=== PATIENT | male | born 1965 | race Caucasian/White ===

== ENCOUNTER 2016-07-26 00:57 | Emergency (ER) | payer OTHER ==
[~2016-07-26] VITALS: Ht 165.1 cm; Wt 81.6 kg
[2016-07-26 00:57] VITALS: BP_SYST 130
[2016-07-26] MEDS ORDERED: IBUPROFEN 800 MG TABLET PO ONE (01:30)
[2016-07-26 03:17] VITALS: BP_SYST 122
== END 2016-07-26 03:17 | disposition home or self-care (01) ==
LOC: SED 00:57
DX: S43.401A Unspecified sprain of right shoulder joint, initial encounter (principal); W11.XXXA Fall on and from ladder, initial encounter; Y93.89 Activity, other specified; Y92.89 Other specified places as the place of occurrence of the external cause; Y99.8 Other external cause status
CPT/HCPCS: 73030; 99284

== ENCOUNTER 2017-02-12 12:09 | Emergency (ER) | payer OTHER ==
[~2017-02-12] VITALS: Ht 165.1 cm; Wt 83.0 kg
[2017-02-12 12:40] VITALS: BP_SYST 120
[2017-02-12] MEDS ORDERED: KETOROLAC TROMETHAMINE 60 MG/2 ML VIAL IM ONE (13:30)
[2017-02-12 13:50] VITALS: BP_SYST 122
== END 2017-02-12 13:50 | disposition home or self-care (01) ==
LOC: SED 12:09
DX: S46.911A Strain of unspecified muscle, fascia and tendon at shoulder and upper arm level, right arm, initial encounter (principal); R03.0 Elevated blood-pressure reading, without diagnosis of hypertension; X58.XXXA Exposure to other specified factors, initial encounter; Y93.89 Activity, other specified; Y92.89 Other specified places as the place of occurrence of the external cause; Y99.8 Other external cause status
CPT/HCPCS: 73030; 96372; 99284; J1885

== ENCOUNTER 2019-05-17 19:33 | Emergency (ER) | payer OTHER ==
[~2019-05-17] VITALS: Ht 165.1 cm; Wt 84.4 kg
[2019-05-17 19:50] VITALS: BP_SYST 153
[2019-05-17] MEDS ORDERED: BACITRACIN ZINC 15 GM TOPICAL OINTMENT TP ONE (20:45)
[2019-05-17] MEDS ORDERED: ACETAMINOPHEN 500 MG TABLET PO ONE (20:45)
[2019-05-17] MEDS ORDERED: BACITRACIN 1 GM OINT TP ONE (21:34)
[2019-05-17 22:15] VITALS: BP_SYST 140
== END 2019-05-17 22:15 | disposition home or self-care (01) ==
LOC: SED 19:33
DX: T22.112A Burn of first degree of left forearm, initial encounter (principal); Y92.89 Other specified places as the place of occurrence of the external cause
CPT/HCPCS: 99284

== ENCOUNTER 2019-06-07 01:18 | Emergency (ER) | payer OTHER ==
[~2019-06-07] VITALS: Ht 165.1 cm; Wt 84.4 kg
--- NOTE | 2019-06-07 01:35 | NUR ---
Dr. Larsen at bedside for examination.
[2019-06-07 01:36] VITALS: BP_SYST 148
--- NOTE | 2019-06-07 01:36 | NUR ---
Pt ambulatory to bed 6 for evaluation
--- NOTE | 2019-06-07 01:40 | NUR ---
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 Upon arrival, patient supporting right extremity and reported he cannot move it. Patient reported pain to be 10/10. Patient in no signs of distress at this time. Safety precautions enforced.
[2019-06-07] MEDS ORDERED: MORPHINE 4 MG/ML INJ. SYRINGE IVP ONE (02:00)
--- NOTE | 2019-06-07 02:00 | NUR ---
Patient resting at this time, no signs of distress noted.
[2019-06-07 02:30] LABS: BASOPHILS % (AUTO) 0.6 % (0.0-2.0); EOSINOPHILS # (AUTO) 0.2 K/uL (0.0-0.4); EOSINOPHILS % (AUTO) 3.4 % (0.0-4.0); HEMATOCRIT 42.9 % (36-54); HEMOGLOBIN 14.5 g/dL (14.0-18.0); LYMPHOCYTES # (AUTO) 1.6 K/uL (1.0-5.5); LYMPHOCYTES % (AUTO) 32.6 % (20.5-51.5); MEAN CORPUSCULAR HEMOGLOBIN 30 pg (27-31); MEAN CORPUSCULAR HGB CONC 34 % (32-36); MEAN CORPUSCULAR VOLUME 88 fL (79.0-98.0); MONOCYTES # (AUTO) 0.4 K/uL (0.0-1.0); MONOCYTES % (AUTO) 7.5 % (1.7-9.3); NEUTROPHILS # (AUTO) 2.8 K/uL (1.8-7.7); NEUTROPHILS % (AUTO) 55.9 % (40.0-70.0); PLATELET COUNT (AUTO) 173 K/uL (130-430); RED BLOOD CELL COUNT(AUTO) 4.89 MIL/uL (4.2-6.2); RED CELL DISTRIBUTION WIDTH 13.4 % (9.0-15.0)
[2019-06-07 02:41] LABS: CALCIUM 8.6 mg/dL (8.4-11.0); CREATININE 0.73 mg/dL (0.55-1.30); POTASSIUM 3.5 mmol/L (3.5-5.1)
[2019-06-07] MEDS ORDERED: LORazepam 2 MG/ML VIAL IM ONE (03:15)
--- NOTE | 2019-06-07 04:29 | NUR ---
Patient sleeping at this time. Patient in no signs of distress.
[2019-06-07] MEDS ORDERED: CYCLOBENZAPRINE HCL 10 MG TABLET (FLEXERIL) PO ONE (04:30)
[2019-06-07 06:11] VITALS: BP_SYST 138
--- NOTE | 2019-06-07 06:11 | NUR ---
Patient given written and verbal discharge instructions and verbalizes understanding. ER MD discussed with patient the results and treatment provided. Patient in stable condition. ID arm band removed. Rx of naprosyn and flexeril given. Patient educated on pain management and to follow up with PMD. Pain Scale 2/10.Opportunity for questions provided and answered. Medication side effect fact sheet provided.
== END 2019-06-07 06:11 | disposition home or self-care (01) ==
LOC: SED 01:18
DX: S49.81XA Other specified injuries of right shoulder and upper arm, initial encounter (principal); E11.9 Type 2 diabetes mellitus without complications; W86.8XXA Exposure to other electric current, initial encounter; Y93.89 Activity, other specified; Y92.89 Other specified places as the place of occurrence of the external cause; Y99.8 Other external cause status
CPT/HCPCS: 36415; 73030; 80048; 82550; 85025; 96372; 99284; J2060; J2270